=== PATIENT | male | born 1985 | race Two or more races ===

== ENCOUNTER 2020-02-19 22:36 | Emergency (ER) | payer MEDICAID ==
[~2020-02-19] VITALS: Ht 172.7 cm; Wt 84.8 kg
[2020-02-19 23:25] VITALS: BP 125/70
--- NOTE | 2020-02-19 23:25 | NUR ---
Patient discharged to home in stable condition. Written and verbal after care instructions given. Patient verbalizes understanding of instructions. Stressed follow up or return to ER for worsening s/s. Ambulated from ER with stable gait. All belongings with patient.
== END 2020-02-19 23:26 | disposition home or self-care (01) ==
LOC: ER 22:39
DX: B34.9 Viral infection, unspecified (principal); R07.9 Chest pain, unspecified; Z20.828 Contact with and (suspected) exposure to other viral communicable diseases
CPT/HCPCS: 93005; 99283; U0003; A4663